=== PATIENT | female | born 1980 | race Caucasian/White ===

== ENCOUNTER 2020-11-01 15:28 | Outpatient (CLI) | payer BC, SELFPAY ==
--- NOTE | ~2020-11-01 | MM_ITS ---
EXAMINATION: MM screening [facility] BI w beatriz HISTORY: Screening mammogram TECHNIQUE: Craniocaudal and mediolateral oblique 3-D tomosynthesis images were obtained and synthetic 2-D images were generated. CAD analysis was submitted and interpreted. COMPARISON: 10/21/2019, 10/06/2018, 09/29/2018 BREAST PARENCHYMAL COMPOSITION: There are scattered areas of fibroglandular density. FINDINGS: There is no evidence of suspicious mass, calcification, or architectural distortion to sugg est malignancy in either breast. There has been no suspicious interval change. IMPRESSION: 1. No mammographic evidence of malignancy. 2. Recommend routine screening mammography in one year. BI-RADS Category 1: Negative Reviewed, dictated and finalized at location A. RAL RESOURCES INSTRUCTOR
== END 2020-11-01 15:29 | disposition home or self-care (01) ==
PROVIDERS: PCP Family Medicine; Visit Provider Obstetrics & Gynecology
DX: Z12.31 Encounter for screening mammogram for malignant neoplasm of breast (principal)
CPT/HCPCS: 77063; 77067

== ENCOUNTER 2021-11-14 14:29 | Outpatient (CLI) | payer BC, SELFPAY ==
--- NOTE | ~2021-11-14 | MM_ITS ---
EXAMINATION: MM screening [facility] BI w beatriz HISTORY: Screening TECHNIQUE: Craniocaudal and mediolateral oblique 3-D tomosynthesis images were obtained and synthetic 2-D images were generated. CAD analysis was submitted and interpreted. COMPARISON: Comparison to multiple prior studies sequentially, with oldest reviewed study dated 01/2018. BREAST PARENCHYMAL COMPOSITION: There are scattered areas of fibroglandular density. FINDINGS: There is no evidence of suspicious mass, calcification, or architectural distortion to sugg est malignancy in either breast. There has been no suspicious interval change. IMPRESSION: 1. No mammographic evidence of malignancy. 2. Recommend routine screening mammography in one year. BI-RADS Category 1: Negative Reviewed, dictated and finalized at location A. RTISING SPACE CLERK
== END 2021-11-14 14:30 | disposition home or self-care (01) ==
LOC: ANHIMG 14:30
PROVIDERS: PCP Family Medicine; Visit Provider Obstetrics & Gynecology
DX: Z12.31 Encounter for screening mammogram for malignant neoplasm of breast (principal)
CPT/HCPCS: 77063; 77067

== ENCOUNTER 2022-12-02 14:37 | Outpatient (CLI) | payer BC, SELFPAY ==
[2022-12-02 15:14] LABS: Hematocrit 39.1 % (37.0-47.0); Hemoglobin 12.8 g/dL (12.0-15.0)
== END 2022-12-02 14:38 | disposition home or self-care (01) ==
LOC: ANHSURGERY 14:40
PROVIDERS: PCP Family Medicine; Visit Provider Obstetrics & Gynecology
DX: Z01.812 Encounter for preprocedural laboratory examination (principal); T83.32XA Displacement of intrauterine contraceptive device, initial encounter
CPT/HCPCS: 36415; 85014; 85018

== ENCOUNTER 2022-12-06 00:49 | Day surgery (SDC) | payer BC, SELFPAY ==
[2022-11-27 12:21] VITALS: BMI 28.9
--- NOTE | 2022-11-27 12:24 | PC.NURSE ---
Report to the Outpatient Waiting Room, entrance under the green pavilion located off [facility], at time 10:00 on date 12/06/22. Planned Procedure Time: 12:00. Time changes happen often and if your time is changed the preop area will call you the afternoon before. - You and your visitor will be asked to self-screen and do not enter if you have any COVID symptoms. - Only one visitor is requested with a max of two and NO children visitors are allowed at this time. - The patient visitor may be requested to leave or wait in car when not with patient due to distancing restrictions. - A mask is optional within the hospital at this time. Patients may have clear liquids (water, carbonated beverages, clear teas, apple juice) until 3 hours prior to surgery (9:00) with a maximum of 20 ounces. - No food from midnight until time of surgery Take the following medications with a SIP of water the morning of surgery: N/A DO NOT STOP ANY OF YOUR OTHER PRESCRIPTION MEDICATIONS PRIOR TO SURGERY EXCEPT THE FOLLOWING Medications to discontinue per physician: ASPIRIN Date to take last dose: PER DR. MOHAMUD HIGGINS Please no make-up, nail french, hairspray, perfume, deodorant, or body powder the day of surgery. No jewelry (including any body piercings) or valuables the day of surgery, leave them at home. Please take a shower or bath the night before, or the morning of, surgery with an antibacterial soap. Wear comfortable, loose fitting clothing. - Jewelry must be removed prior to entering the operating room. Rings and piercings that are not removed may be cut off. - The hospital will not accept responsibility for valuables. - Please leave all valuables, including medications, at home the day of surgery. If you are going home after surgery, a licensed tank truck driver must drive you home. - NO public transportation without another adult if you receive anesthesia. - We recommend that an adult stay with you for 24 hours following discharge. - We also recommend that you do not drive, make important decision, drink alcoholic beverages, or take any drugs that were not prescribed by your health care provider for at least 24 hours after your discharge time. Follow any additional instructions given to you from your surgeon. If you or anyone in your household have experienced Covid symptoms in the past week, please notify your surgeon or the nurse liaison at the phone number below for possible testing. Telephone instructions given to PT - LARRY MESA and asked if any additional questions and then verbalized understanding. Patient advised to call surgeon office or pre surgery nurse liaison [phone] if any additional questions.
--- NOTE | 2022-12-04 11:36 | PM.IMHP ---
H&P: HPI History of Present Illness Date/Time: 12/04/22 11:36 Chief Complaint: Unable to find the strings of the IUD Narrative: Is a 42-year-old female who is admitted for removal hysteroscopically a previous IUD and replacement with Kyleena. Was unable to do this in the office and she opts for hysteroscopic approach. Risks and benefits reviewed in great detail [facility] Past Medical History Medical History (Updated 12/04/22 @ 11:38 by Mateus Sandra MD) Depression Hypertension Varicella Family History Family History Other Cerebrovascular accident Family history of malignant neoplasm of breast in first degree relative Family history of obesity Hypertension Social History Social History Smoking status: Never smoker Second hand tobacco smoke exposure: No Alcohol intake: current Drinks per week: 4 Substance use: never Substance use type: does not use Lack of Transportation: No Lack of Food: Never True Current Housing: I Have Housing Concerned About Future Housing: No Difficulty Paying Gas/Electric Bills: No Difficulty Paying for Meds: No Currently Unemployed: No Education: Associate Degree Difficulty w/ Childcare or Family Care: No Living arrangements: alone Spiritual care concerns: No Agree to blood products: Yes Meds Home Medications and Allergies Home Medications Medication Instructions Recorded Confirmed Type levonorgestrel 17.5 mcg/24 hrs 1 device intrauterine ONCE 03/12/22 11/27/22 History (5yrs) 19.5mg intrauterine device (Kyleena) amlodipine 10 mg tablet 10 mg PO DAILY #90 tabs 10/17/22 11/27/22 Rx escitalopram oxalate 10 mg tablet 10 mg PO DAILY #30 tabs 11/12/22 11/27/22 Rx aspirin 81 mg chewable tablet 81 mg PO HS 11/27/22 11/27/22 History Allergies Allergy/AdvReac Type Severity Reaction Status Date / Time No Known Allergies Allergy Verified 11/27/22 12:20 Exam Const: General: cooperative, healthy appearing, comfortable and well groomed Nutritional Appearance: average body habitus Orientation/consciousness: oriented to person, oriented to place and oriented to time HENMT: Head: normal to inspection Resp: Effort & Inspection: normal respiratory effort Cardio: Rate: regular rate Rhythm: regular rhythm Heart sounds: S1 normal heart sound present and S2 normal heart sound present GI: Inspection: normal to inspection Percussion: Yes normal to percussion Auscultation: normal bowel sounds : External Female Exam: normal external appearance Speculum Exam - Vagina: normal appearance of the vagina Speculum Exam - Cervix: normal appearance of the cervix Bimanual exam- vagina & uterus: non-tender Bimanual Exam- Adnexa, other: normal adnexae Assessment and Plan Assessment and plan (1) IUD strings lost: Code(s): T83.32XA - Displacement of intrauterine contraceptive device, initial encounter Status: Acute Plan Hysteroscopic removal of IUD with replacement of new IUD
--- NOTE | 2022-12-06 07:11 | WPDHPUPDATE1 ---
History and Physical Update Update Date/Time: 12/06/22 07:11 History and Physical has been reviewed, including an updated exam of the patient. There are NO changes in the patient's condition. Risks, benefits, and alternatives have been discussed and questions answered. Patient agrees to proceed with procedure.
[2022-12-06 09:00] VITALS: BP 113/72; PULSE 83; RESP 16; TEMP 36.3; O2SAT 100
[2022-12-06] MEDS: LACTATED RINGERS 1,000 ML 30 ML IV CONT (09:00)
[2022-12-06] MEDS: ACETAMINOPHEN 500 MG TABLET 1000 MG PO (09:07)
--- NOTE | 2022-12-06 09:40 | WPDANESEPPF ---
Anes - Initial Pre Proc Eval Procedure: Operation Date: 12/06/22 10:30 Proposed Procedures p Hysteroscopy with Intrauterine Device Removal and Reinsertion - Mateus Sandra MD Date/Time: 12/06/22 09:40 Surgeon: Mateus Sandra MD Pre Op Diagnosis: lost strings and reinsertion Patient Data Age: 42 Gender: F Height: 1.57 m Weight: 72.4 kg Last Vital Signs Temp 36.3 C L 12/06/22 09:00 Pulse 83 12/06/22 09:00 Resp 16 12/06/22 09:00 BP 113/72 12/06/22 09:00 Pulse Ox 100 12/06/22 09:00 O2 Del Method Room Air 12/06/22 09:00 Allergies Allergy/AdvReac Type Severity Reaction Status Date / Time No Known Allergies Allergy Verified 12/06/22 09:23 Home Medications Medication Instructions Recorded Confirmed Type levonorgestrel 17.5 mcg/24 hrs 1 device intrauterine ONCE 03/12/22 12/06/22 History (5yrs) 19.5mg intrauterine device (Kyleena) amlodipine 10 mg tablet 10 mg PO DAILY #90 tabs 10/17/22 12/06/22 Rx escitalopram oxalate 10 mg tablet 10 mg PO DAILY #30 tabs 11/12/22 12/06/22 Rx aspirin 81 mg chewable tablet 81 mg PO HS 11/27/22 12/06/22 History hydrocodone 5 mg-acetaminophen 325 1 tablet PO Q4H PRN pain #14 tabs 12/06/22 Rx mg tablet Patient hx anesthesia problems: none Family hx anesthesia problems: none Results Review: All pre-operative results and documents have been reviewed as part of the pre-operative evaluation. [facility] Past Medical History Medical History Depression Hypertension Varicella Family History Family History Other Cerebrovascular accident Family history of malignant neoplasm of breast in first degree relative Family history of obesity Hypertension Social History Social History Smoking status: Never smoker Second hand tobacco smoke exposure: No Alcohol intake: current Drinks per week: 4 Substance use: never Substance use type: does not use Lack of Transportation: No Lack of Food: Never True Current Housing: I Have Housing Concerned About Future Housing: No Difficulty Paying Gas/Electric Bills: No Difficulty Paying for Meds: No Currently Unemployed: No Education: Associate Degree Difficulty w/ Childcare or Family Care: No Living arrangements: alone Spiritual care concerns: No Agree to blood products: Yes Anes - Eval Final PreProcedure Day of Procedure 12/06/22 09:40 Patient weight: overweight Heart: regular rate and rhythm Lungs: clear to auscultation Airway: Mallampati scale class II Neurological: alert and oriented Last oral intake: >/= 8 hours ASA classification: II Emergent: no Anesthetic plan: proceed Anesthesia type and monitoring: general GIVS and standard monitoring Results Review: All pre-operative results and documents have been reviewed as part of the pre-operative evaluation. Informed Consent: The patient's anesthetic plan and its attendant risks and benefits were discussed with the patient/family/POA. Questions were solicited and answers provided to the satisfaction of the patient/family/POA.
[2022-12-06] MEDS: LIDOCAINE HCL 2% PF INJ 5 ML VIAL 10 ML INFILTRATE (10:41)
--- NOTE | 2022-12-06 10:46 | W.PM.PROC2 ---
Procedure Note - Detailed Date of Procedure 12/06/22 Pre-op Diagnosis lost strings and reinsertion Post-op Diagnosis Same Procedure Performed Hysteroscopy/removal of IUD /replacement of IUD Surgeon Mateus Sandra MD Anesthesia MAC and Local Indications this is a 42-year-old female who is IUD was unable to be reached in the office Findings uterus sounded to7.5cm. The IUD was found with the strings in the uterus. Description of Procedure Patient was prepped draped in normal sterile fashion placed in dorsal lithotomy position. Under excellent IV sedation weighted speculum placed in posterior fornix vagina. Anterior lip of the cervix grasped single-tooth tenaculum. 2.5cc 1% xylocaine anesthesia placed at 2, 4, 8, 10:00 a.m. of the cervix. Uterus sounded to7.5cm. The serial dilatation was performed followed by passage of the of Mariely hysteroscope. The IUD was seen and was grasped and removed without difficulty. Photo documentation undertaken. The hysteroscope was removed and the Kyleena was placed sterilely in the uterus at7.5cm string cut to an inch. The procedure was finished routine discharge instructions were given there were no complications Estimated Blood Loss 5 Drains No Packing No Pathology None sent Complications No immediate complications Condition Stable Disposition PACU
[2022-12-06 10:50] VITALS: BP 113/73; PULSE 66; RESP 14
[2022-12-06 11:34] VITALS: BP 114/72; PULSE 67; RESP 16
[2022-12-06 11:52] VITALS: BP 121/78; PULSE 58; RESP 16
== END 2022-12-06 12:10 | disposition home or self-care (01) ==
PROVIDERS: PCP Family Medicine; Visit Provider Obstetrics & Gynecology
PROC: 0U5B8ZZ Destruction of Endometrium, Via Natural or Artificial Opening Endoscopic (ICD-10-PCS; CPT 58563; principal; 2022-12-06 10:30)
DX: T83.32XA Displacement of intrauterine contraceptive device, initial encounter (principal); Y84.8 Other medical procedures as the cause of abnormal reaction of the patient, or of later complication, without mention of misadventure at the time of the procedure; I10 Essential (primary) hypertension; F32.A Depression, unspecified; Z79.82 Long term (current) use of aspirin
CPT/HCPCS: 58562; 58300; 36415; 85014; 85018; A9270; J2250; J2704; J3010; J7120

== ENCOUNTER 2022-12-16 15:28 | Outpatient (CLI) | payer BC, SELFPAY ==
--- NOTE | ~2022-12-16 | MM_ITS ---
EXAMINATION: MM screening [facility] BI w beatriz HISTORY: Screening mammogram TECHNIQUE: Craniocaudal and mediolateral oblique 3-D tomosynthesis images were obtained and synthetic 2-D images were generated. CAD analysis was submitted and interpreted. COMPARISON: 11/14/2021, 11/01/2020, 10/21/2019 bilateral screening mammogram examinations BREAST PARENCHYMAL COMPOSITION: There are scattered areas of fibroglandular density. FINDINGS: There is no evidence of suspicious mass, calcification, or architectural distortion to sugg est malignancy in either breast. There has been no suspicious interval change. IMPRESSION: 1. No mammographic evidence of malignancy. 2. Recommend routine screening mammography in one year. BI-RADS Category 1: Negative Reviewed, dictated and finalized at location A. SLIP COVER INSTALLER
== END 2022-12-16 15:29 | disposition home or self-care (01) ==
LOC: ANHIMG 15:29
PROVIDERS: PCP Family Medicine; Visit Provider Obstetrics & Gynecology
DX: Z12.31 Encounter for screening mammogram for malignant neoplasm of breast (principal)
CPT/HCPCS: 77063; 77067

== ENCOUNTER 2024-02-25 08:26 | Outpatient (CLI) | payer BC, SELFPAY ==
--- NOTE | ~2024-02-25 | MM_ITS ---
EXAMINATION: MM screening [facility] BI w beatriz HISTORY: Screening TECHNIQUE: Craniocaudal and mediolateral oblique 3-D tomosynthesis images were obtained and synthetic 2-D images were generated. CAD analysis was submitted and interpreted. COMPARISON: Comparison to multiple prior studies sequentially, with oldest reviewed study dated 01/2018. BREAST PARENCHYMAL COMPOSITION: Dense: The breasts are heterogeneously dense, which may obscure small masses FINDINGS: There is a new focal asymmetry superiorly in the right breast on MLO view. There is a new m ass in the central lateral aspect of the left breast anteriorly. There are no suspicious calcificatio ns or architectural distortion. IMPRESSION: 1. New focal left breast mass and right breast asymmetry. 2. Additional mammographic views and possible breast ultrasound are recommended. BI-RADS Category 0: Incomplete: Needs additional imaging evaluation. Reviewed, dictated and finalized at location B. IMPRESSION: 1. New focal left breast mass and right breast asymmetry. 2. Additional mammographic views and possible breast ultrasound are recommended . BI-RADS Category 0: Incomplete: Needs additional imaging evaluation.
== END 2024-02-25 08:27 | disposition home or self-care (01) ==
LOC: ANHIMG 08:30
PROVIDERS: PCP Family Medicine; Visit Provider Obstetrics & Gynecology
DX: Z12.31 Encounter for screening mammogram for malignant neoplasm of breast (principal); R92.8 Other abnormal and inconclusive findings on diagnostic imaging of breast
CPT/HCPCS: 77063; 77067

== ENCOUNTER 2024-03-23 11:15 | Outpatient (CLI) | payer BC, SELFPAY ==
--- NOTE | ~2024-03-23 | MMUS_ITS ---
EXAMINATION: MM diagnostic [facility] BI w beatriz, US breast BI complete HISTORY: Follow-up bilateral breast asymmetries TECHNIQUE: Additional 3-D tomosynthesis images of the breasts were performed and synthetic 2-D images were generated. CAD analysis was submitted and interpreted. High resolution bilateral complete breas t ultrasound was performed. COMPARISON: 02/25/2024 BREAST PARENCHYMAL COMPOSITION: Dense: The breasts are heterogeneously dense, which may obscure small masses FINDINGS: MAMMOGRAPHIC FINDINGS: There is a focal asymmetry slightly superior aspect of the right breast on mediolateral view, near th e nipple. This is not definitely visualized on the CC view. There is a persistent small radiolucent m ass in the upper central aspect of the left breast anteriorly. ULTRASOUND: Complete bilateral US of all 4 quadrants of the breasts and retroareolar region was reviewed. Right breast: At 10:00 near the nipple there is a lobulated slightly irregular hypoechoic mass with p arallel orientation, mixed posterior attenuation measuring 13 x 10 x 6 mm. No internal vascularity. Left breast: At 7:00, 5 cm from the nipple there is a 5 mm cyst. At 11:00, 5 cm from the nipple, ther e is an oval hypoechoic mass with slightly heterogeneous internal echotexture measuring 7 x 6 x 3 mm, parallel orientation, circumscribed margins, no posterior features and no internal vascularity, like ly benign. IMPRESSION: 1. Slightly irregular shaped 13 mm right breast mass at 10:00 near the nipple. Ultrasound-guided righ t breast biopsy recommended. 2. Probable benign hypoechoic mass of the left breast at 11:00, 5 cm from the nipple. Six-month follo w-up Limited left breast ultrasound recommended. BI-RADS CATEGORY 4-SUSPICIOUS ABNORMALITY Reviewed, dictated and finalized at location B. IMPRESSION: 1. Slightly irregular shaped 13 mm right breast mass at 10:00 near the nipple. Ultrasound-guided right breast biopsy recommended. 2. Probable benign hypoechoic mass of the left breast at 11:00, 5 cm from the n ipple. Six-month follow-up Limited left breast ultrasound recommended. BI-RADS CATEGORY 4-SUSPICIOUS ABNORMALITY
== END 2024-03-23 11:16 | disposition home or self-care (01) ==
PROVIDERS: PCP Family Medicine; Visit Provider Obstetrics & Gynecology
DX: R92.8 Other abnormal and inconclusive findings on diagnostic imaging of breast (principal)
CPT/HCPCS: 76641; 77062; 77066; G0279

== ENCOUNTER 2024-05-20 08:10 | Outpatient (CLI) | payer BC, SELFPAY ==
--- NOTE | ~2024-05-20 | MMUS_ITS ---
MM post biopsy diagnostic LT, US breast biopsy RT w image EXAMINATION: US GUIDED NEEDLE BIOPSY WITH VACUUM ASSISTANCE DATE: 05/20/2024 10:09 CDT INDICATION: Right breast mass seen on prior examination. Ultrasound-guided core biopsy is requested to evaluate for malignancy. BREAST PARENCHYMAL COMPOSITION: Dense: The breasts are heterogeneously dense, which may obscure small masses TECHNIQUE AND FINDINGS: The risks and potential benefits of the procedure were discussed with the patient, and written inform ed consent was obtained. After sterile preparation of the right breast, 1% lidocaine was utilized fo r local anesthesia. 1% lidocaine with epinephrine was used for deep anesthesia. A 10G vacuum-assisted biopsy gun needle was advanced through to the outer edge of the region of inter est from a superior approach utilizing sonographic guidance. A total of 4 tissue core samples were o btained through the lesion. An Inrad tissue marker clip was then placed at the biopsy site. Hemostas is was achieved. The patient tolerated procedure well and there was no evidence of immediate complication. The patien t was given verbal instructions partly is from the department. Right breast mammograms to document t issue marker clip placement. The tissue samples were submitted to surgical pathology for histologic a nalysis. IMPRESSION: 1. Successful ultrasound-guided vacuum-assisted biopsy of right breast mass with post procedure mamm ogram for marker placement. Please refer to pathology report for histologic analysis. Reviewed, dictated and finalized at location B. IMPRESSION: 1. Successful ultrasound-guided vacuum-assisted biopsy of right breast mass wi th post procedure mammogram for marker placement. Please refer to pathology rep ort for histologic analysis.
== END 2024-05-20 08:11 | disposition home or self-care (01) ==
PROVIDERS: PCP Family Medicine; Visit Provider Surgery
DX: N63.10 Unspecified lump in the right breast, unspecified quadrant (principal); R92.8 Other abnormal and inconclusive findings on diagnostic imaging of breast
CPT/HCPCS: 19083; 77065; 88305; A4648

== ENCOUNTER 2024-09-14 09:57 | Outpatient (CLI) | payer BC, SELFPAY ==
--- NOTE | ~2024-09-14 | MR_ITS ---
EXAMINATION: MR breast BI wo/w con INDICATION: Left breast lump, family history of breast cancer TECHNIQUE: Axial VIBRANT pre and dynamic post contrast, Sagittal VIBRANT post contrast, Axial T2 STIR ASSET COMPARISON: Mammography dated 02/25/2024 CONTRAST: Multihance, 15 cc BREAST COMPOSITION: Heterogeneous fibroglandular tissue FINDINGS: RIGHT BREAST: There is mild to moderate background parenchymal enhancement. There is asymmetric nonma ss-like enhancement in the outer right subareolar region.. No pathologically enlarged axillary or int ernal mammary lymph nodes are identified. LEFT BREAST: There is mild to moderate background parenchymal enhancement. There is an 8 mm ovoid/rou nd enhancing mass in the central slightly upper left breast, anterior third, 3.3 cm posterior to nipp le. This probably correlates with the sonographic lesion identified in the left breast. No pathologic ally enlarged axillary or internal mammary lymph nodes are identified. IMPRESSION: 8 mm left breast mass, as detailed above, which correlates with the sonographic lesion seen on ultra sound earlier today. This lesion has benign imaging characteristics sonographically, and is stable si nce 03/23/2024, is compatible with benign finding. Some asymmetric mild enhancement in the right outer subareolar region, most likely asymmetric fibrogl andular tissue. Consider second look ultrasound in the right subareolar region to further exclude any suspicious lesion. 6 month follow-up MRI advised to reassess this finding. BI-RADS category 3, probably benign findings. Reviewed, dictated and finalized at location . PROCESS DEPLOYMENT CONSULTANT IMPRESSION: 8 mm left breast mass, as detailed above, which correlates with the sonographi c lesion seen on ultrasound earlier today. This lesion has benign imaging seble cteristics sonographically, and is stable since 03/23/2024, is compatible with b enign finding. Some asymmetric mild enhancement in the right outer subareolar region, most lik nenita asymmetric fibroglandular tissue. Consider second look ultrasound in the ri ght subareolar region to further exclude any suspicious lesion. 6 month follow- up MRI advised to reassess this finding. BI-RADS category 3, probably benign findings.
--- NOTE | ~2024-09-14 | US_ITS ---
EXAMINATION TYPE: US breast LT limited COMPARISON: 03/23/2024 REASON FOR STUDY: Z12.39 - Encounter for other screening for malignant neop... TECHNIQUE: Targeted sonographic evaluation of the left breast was performed. INTERPRETATION: Stable 7 x 3 x 5 mm ovoid parallel circumscribed mass without posterior shadowing is noted of the lef t breast 12:00 position, 5 cm from the nipple. IMPRESSION: Stable subcentimeter benign-appearing mass at the 12 position left breast, as detailed above. BI-RADS CATEGORY: BI-RADS 2: Benign Reviewed, dictated and finalized at location M. ATTENDANT IMPRESSION: Stable subcentimeter benign-appearing mass at the 12 position left breast, as d etailed above. BI-RADS CATEGORY: BI-RADS 2: Benign
== END 2024-09-14 09:58 | disposition home or self-care (01) ==
LOC: ANHIMG 09:57
PROVIDERS: PCP Family Medicine; Visit Provider Surgery
DX: R92.8 Other abnormal and inconclusive findings on diagnostic imaging of breast (principal); N63.25 Unspecified lump in the left breast, overlapping quadrants; N63.10 Unspecified lump in the right breast, unspecified quadrant; Z80.3 Family history of malignant neoplasm of breast
CPT/HCPCS: 76642; 77049; A9577; C8908

== ENCOUNTER 2025-03-14 11:07 | Outpatient (CLI) | payer BC, SELFPAY ==
--- NOTE | ~2025-03-14 | MR_ITS ---
MR breast BI wo/w con 03/15/2025 07:59 CDT INDICATION: Follow-up breast mass. Palpable lumps in both breasts. TECHNIQUE: MRI of the breasts perform using standard protocol pre-and post IV contrast with the follo wing sequences: Axial T2 STIR, axial T1, axial vibrant T1 with fat suppression precontrast and multip hasic postcontrast. 15 cc MultiHance administered intravenously. COMPARISON: Comparison to multiple prior studies sequentially, with oldest reviewed study dated 09/26. FINDINGS: There is heterogeneous fibroglandular tissue in both breasts. Right breast: There are no abnormalities on the precontrast sequences. There is mild background paren chymal enhancement. There is a small intramammary lymph node in the upper outer quadrant of the right breast at 11:00, middle third measuring 6 mm. In the upper outer quadrant of the right breast, middle third there is enhancing 5 mm mass with rapid plateau enhancement and not definitely seen on prior examination. No evidence of signal abnormalitie s in the axillary or internal mammary node distributions. LEFT BREAST: No signal abnormalities on precontrast sequences. There is mild background parenchymal enhancement. Stable enhancing mass upper central left breast, anterior-middle depth measuring 8 mm lo cated 4.9 cm posterior to the nipple with rapid persistent enhancement. No evidence of signal abnorma lities in the axillary or internal mammary node distributions.] IMPRESSION: 1: Right breast: Right breast mass upper outer quadrant of the right breast measuring 5 mm with rapi d plateau enhancement, not definitely seen on prior examination, although likely benign. Probable vasiliy ign intramammary lymph node of the right breast measuring 6 mm in the upper outer quadrant, middle th ird. 2: Left breast: Stable likely benign left breast mass measuring 8 mm upper central left breast, ante rior-middle depth 4.9 cm posterior to the nipple.. Recommend correlation with diagnostic bilateral mammogram and bilateral breast ultrasound. BI-RADS CATEGORY 0 - INCOMPLETE STUDY, NEED ADDITIONAL IMAGING EVALUATION. Reviewed, dictated and finalized at location B. IMPRESSION: 1: Right breast: Right breast mass upper outer quadrant of the right breast me asuring 5 mm with rapid plateau enhancement, not definitely seen on prior exami nation, although likely benign. Probable benign intramammary lymph node of the right breast measuring 6 mm in the upper outer quadrant, middle third. 2: Left breast: Stable likely benign left breast mass measuring 8 mm upper nenita tral left breast, anterior-middle depth 4.9 cm posterior to the nipple.. Recommend correlation with diagnostic bilateral mammogram and bilateral breast ultrasound. BI-RADS CATEGORY 0 - INCOMPLETE STUDY, NEED ADDITIONAL IMAGING EVALUATION.
--- OUTSIDE RECORDS SUMMARY | 2025-03-14 11:45 | XMS_ITS | Clinical Summary ---
Author Organization [facility] [employer] Address [address] [place] [address] Care Team Providers Care Credit Officer Name Role Phone Diane Hernandez MD Primary Care Provider [phone] Source Comments [facility] [employer]non-university hospital Affiliates and Associated Physician Practices is amultiple site organization consisting of ambulatory clinics and hospital sitesin [place], [place], [place] and [place]. This disclosure is being madepursuant to the Care Everywhere program and may not contain all information available regarding this patient. Last updated 18.[facility] [employer] Allergies No known active allergies Medications * Be aware that medications may not be up to date on this document. Alwaysverify current medications with the patient. METOPROLOL SUCCINATE PO Active amLODIPine Besylate (NORVASC PO) Active levonorgestrel (KYLEENA) 19.5 MG IUD IUD 1 Intra Uterine Device by Intrauterine route as directed Active albuterol HFA (PROVENTIL;VENT TISH;PROAIR) 108 (90 Base) MCG/ACT inhaler Inhale 2 puffs by mouth every 4 hours as needed 1 Inhaler 0 Active benzonatate (TESSALON) 200 MG capsule Take 1 capsule by mouth 3 times daily as needed for Cough 30 capsule 0 Active Social History Tobacco Use Types Packs/Day Years Used Date Smoking Tobacco: Never Smokeless Tobacco: Never Comments Unknown Sex and Gender Information Value Date Recorded Sex Assigned at Not on file Legal Sex Female 12:57 PM CDT Gender Identity Not on file Sexual Orientation Not on file Last Filed Vital Signs Vital Sign Reading Time Taken Comments Blood Pressure 102/70 12/08/2019 9:48 AM WEB EDITOR Pulse 83 12/08/2019 9:48 AM WEB EDITOR Temperature 36.8 C (98.2 F) 12/08/2019 9:48 AM WEB EDITOR Respiratory Rate 17 12/08/2019 9:48 AM WEB EDITOR Oxygen Saturation 99% 12/08/2019 9:48 AM WEB EDITOR Inhaled Oxygen Concentration - - Weight 81.6 kg (180 lb) 12/08/2019 9:48 AM WEB EDITOR Height 157.5 cm (5' 2 ) 12/08/2019 9:48 AM WEB EDITOR Body Mass Index 32.92 12/08/2019 9:48 AM WEB EDITOR Plan of Treatment Health Maintenance Due Date Last Done Comments COLOGUARD (AGES 45-75) - COL ON CA SCREENING 1978 COLON MONITORING 1978 COLONOSCOPY - COLON CA SCREENING 1978 CT COLONOGRAPHY - COLON CA SCREENING 1978 Colorectal Cancer Screening 1978 FIT - COLON CA SCREENING 1978 FLEX SIG - COLON CA SCREENING 1978 LIPID TESTING 1978 MAMMOGRAM 1978 PAP SMEAR 1978 HIV SCREENING 1993 HEPATITIS C SCREENING 09/10/1996 DTAP/TDAP/TD VACCINES (1 - Tdap) 1997 HEPATITIS B VACCINE (1 of 3 - 19+ 3-dose series) 1997 SCREENING FOR DIABETES 04/25/2019 COVID-19 VACCINE (1 - 2023-2 5 season) 2024 DEPRESSION SCREENING 10/27/2024 INFLUENZA VACCINE (Season Ended) 2025 ZOSTER VACCINE (1 of 2) 2028 HIB VACCINE Aged Out No longer eligi ble based on patient's age to complete this topic HPV VACCINE Aged Out No longer eligi ble based on patient's age to complete this topic MENINGOCOCCAL (Group B) VACC INE SHARED DECISION-MAKING Aged Out No longer eligibl e based on patient's age to complete this topic MENINGOCOCCAL GROUPS A/C/Y/W VACCINE Aged Out No longer eligible b ased on patient's age to complete this topic PNEUMOCOCCAL VACCINE Aged Out No long er eligible based on patient's age to complete this topic Insurance * Guarantor: JOHANNA SMALLWOOD Account Type Relation to Patient Date of Phone Billing Address Personal/Family [address] [place] [address] SELF PAY NO INSURANCE Member Subscriber Plan / Payer (Ef fective for All Dates) Name:Johanna Smallwood Member ID:Not on file Relation to Subscriber:Not on file Name:JOHANNA SMALLWOOD Subscriber ID:Not on file Address: [address] [place] [address] Payer ID:Not on file Group ID:Not on file Type:Self Pay Address: [place], [place] * Guarantor: JOHANNA SMALLWOOD Account Type Relation to Patient Date of Phone Billing Address Personal/Family [address] [place] [address] SELF PAY NO INSURANCE Member Subscriber Plan / Payer (Ef fective for All Dates) Name:Johanna Smallwood Member ID:Not on file Relation to Subscriber:Not on file Name:JOHANNA SMALLWOOD Subscriber ID:Not on file Address: [address] [place], [place] [id number] Payer ID:Not on file Group ID:Not on file Type:Self Pay Address: [place], [place] * Guarantor: JOHANNA SMALLWOOD Account Type Relation to Patient Date of Phone Billing Address Personal/Family [address] SELF PAY NO INSURANCE Member Subscriber Plan / Payer (Ef fective for All Dates) Name:Johanna Smallwood Member ID:Not on file Relation to Subscriber:Not on file Name:JOHANNA SMALLWOOD Subscriber ID:Not on file Address: [address] [place], [place] [id number] Payer ID:Not on file Group ID:Not on file Type:Self Pay Address: [place], [place] Care Teams Credit Officer Relationship Specialty Start Date End Date Diane Hernandez MD [address] [place] [address] PCP - General Family Medicine 04/25/19
--- OUTSIDE RECORDS SUMMARY | 2025-03-14 11:45 | XMS_ITS | Clinical Summary ---
Author Organization [facility] Address [address] [place] [address] Care Team Providers Care Coding Analyst Name Role Phone Unavailable Primary Care Provider Unavailabl e Social History Tobacco Use Types Packs/Day Years Used Date Smoking Tobacco: Never Assessed Comments Unknown Sex and Gender Information Value Date Recorded Sex Assigned at Not on file Legal Sex Female 6:02 PM CDT Gender Identity Not on file Sexual Orientation Not on file Plan of Treatment Health Maintenance Due Date Last Done Comments Cervical Cancer Screening Pa p Smear (Age 30 to 64) Every 3 Years 1978 Colorectal Cancer Screening Colonoscopy (10 Years) 1978 Annual Physical 1981 Hepatitis C 1996 DTaP, Tdap and Td Vaccines ( 1 - Tdap) 1997 Hepatitis B Vaccines (1 of 3 - 19+ 3-dose series) 1997 Cervical Cancer Screening Pa p with HPV Testing (Age 30 to 64) Every 5 Years 2008 Cervical Cancer Screening with HPV 2008 Mammogram Screening 2018 COVID-19 Vaccine (2023-2 5 season) 2024 Meningococcal B Vaccine Aged Out No l onger eligible based on patient's age to complete this topic Meningococcal Vaccine Aged Out No kenneth kenya eligible based on patient's age to complete this topic Pneumococcal Vaccine: Pediat rics (0 to 5 Years) and At-Risk Patients (6 to 49 Years) Aged Out No longer eligible b ased on patient's age to complete this topic RSV Immunizations Under 20 Months Aged Out No longer eligible based on patient's age to complete this topic
== END 2025-03-14 11:08 | disposition home or self-care (01) ==
PROVIDERS: PCP Family Medicine; Visit Provider Physician Assistant Surgical
DX: R92.8 Other abnormal and inconclusive findings on diagnostic imaging of breast (principal); N63.22 Unspecified lump in the left breast, upper inner quadrant; N63.11 Unspecified lump in the right breast, upper outer quadrant; Z91.89 Other specified personal risk factors, not elsewhere classified; Z12.31 Encounter for screening mammogram for malignant neoplasm of breast
CPT/HCPCS: 77049; A9579; C8908

== ENCOUNTER 2025-04-05 13:11 | Outpatient (CLI) | payer BC, SELFPAY ==
--- NOTE | ~2025-04-05 | MMUS_ITS ---
EXAMINATION: MM diagnostic dominique BI w beatriz, US breast RT limited HISTORY: Palpable right breast lump TECHNIQUE: Additional 3-D tomosynthesis images of the right breast were performed and synthetic 2-D i mages were generated. CAD analysis was submitted and interpreted. High resolution Limited right breas t ultrasound was performed. COMPARISON: Comparison to multiple prior studies sequentially, with oldest reviewed study dated 03/2021. BREAST PARENCHYMAL COMPOSITION: Dense: The breasts are heterogeneously dense, which may obscure small masses FINDINGS: MAMMOGRAPHIC FINDINGS: The breasts are stable. No new masses, calcifications or architectural distortion in either breast to suggest malignancy. ULTRASOUND: Limited right breast ultrasound: At 10:00, 5 cm from the nipple there is an oval circumscribed parall el oriented hypoechoic mass with parallel orientation, no posterior features and no internal vascular ity measuring 7 mm. At 10:00 near the nipple in the area of previous biopsy there is an oval hypoecho ic mass measuring 9 x 8 x 6 mm with adjacent tissue marker, consistent with previous benign biopsy si te. No additional masses are seen. IMPRESSION: 1. Probable benign right breast mass at 10:00, 5 cm from the nipple. Biopsy proven mass at 10:00 near the nipple. No mammographic abnormalities to suggest malignancy. 2. Recommend 6 month follow-up Limited right breast ultrasound BI-RADS category 3, probably benign findings. Reviewed, dictated and finalized at location B. IMPRESSION: 1. Probable benign right breast mass at 10:00, 5 cm from the nipple. Biopsy pro arjun mass at 10:00 near the nipple. No mammographic abnormalities to suggest mal ignancy. 2. Recommend 6 month follow-up Limited right breast ultrasound BI-RADS category 3, probably benign findings.
--- OUTSIDE RECORDS SUMMARY | 2025-04-05 14:12 | XMS_ITS | Clinical Summary ---
Author Organization [facility] Address [address] [place] [address] Care Team Providers Care Manager Membership Name Role Phone Diane Hernandez MD Primary Care Provider [phone] Source Comments [facility],non-[facility] Affiliates and Associated Physician Practices is amultiple site organization consisting of ambulatory clinics and hospital sitesin [place], [place], [place] and [place]. This disclosure is being madepursuant to the Care Everywhere program and may not contain all information available regarding this patient. Last updated 18.[facility] Allergies No known active allergies Medications * [...] Comments Blood Pressure 102/70 12/08/2019 9:48 AM CONTRACTS MANAGER Pulse 83 12/08/2019 9:48 AM CONTRACTS MANAGER Temperature 36.8 C (98.2 F) 12/08/2019 9:48 AM CONTRACTS MANAGER Respiratory Rate 17 12/08/2019 9:48 AM CONTRACTS MANAGER Oxygen Saturation 99% 12/08/2019 9:48 AM CONTRACTS MANAGER Inhaled Oxygen Concentration - - Weight 81.6 kg (180 lb) 12/08/2019 9:48 AM CONTRACTS MANAGER Height 157.5 cm (5' 2) 12/08/2019 9:48 AM CONTRACTS MANAGER Body Mass Index 32.92 12/08/2019 9:48 AM CONTRACTS MANAGER Plan of Treatment Health Maintenance Due Date [...] Date of Phone Billing Address Personal/Family [address] [place] [address] SELF PAY NO INSURANCE Member Subscriber Plan / Payer (Ef fective for All Dates) Name:Johanna Smallwood Member ID:Not on file Relation to Subscriber:Not on file Name:JOHANNA SMALLWOOD Subscriber ID:Not on file Address: [address] [place] [address] Payer ID:Not on file Group ID:Not on file Type:Self Pay Address: [place], [place] * Guarantor: JOHANNA SMALLWOOD Account Type Relation to Patient Date of Phone Billing Address Personal/Family [address] [place] [address] SELF PAY NO INSURANCE Member Subscriber Plan / Payer (Ef fective for All Dates) Name:Johanna Smallwood Member ID:Not on file Relation to Subscriber:Not on file Name:JOHANNA SMALLWOOD Subscriber ID:Not on file Address: [address] [place], [place] [id number] Payer ID:Not on file Group ID:Not on file Type:Self Pay Address: [place], [place] * Guarantor: JOHANNA SMALLWOOD Account Type Relation to Patient Date of Phone Billing Address Personal/Family [address] SELF PAY NO INSURANCE Member Subscriber Plan / Payer (Ef fective for All Dates) Name:Johanna Smallwood Member ID:Not on file Relation to Subscriber:Not on file Name:JOHANNA SMALLWOOD Subscriber ID:Not on file Address: [address] [place], [place] [id number] Payer ID:Not on file Group ID:Not on file Type:Self Pay Address: [place], [place] Care Teams Manager Membership Relationship Specialty Start Date End Date Diane Hernandez MD [address] [place] [address] PCP - General Family Medicine 04/25/19
== END 2025-04-05 13:12 | disposition home or self-care (01) ==
PROVIDERS: PCP Family Medicine; Visit Provider Surgery
DX: N63.11 Unspecified lump in the right breast, upper outer quadrant (principal); Z91.89 Other specified personal risk factors, not elsewhere classified
CPT/HCPCS: 76642; 77062; 77066; G0279

== ENCOUNTER 2025-06-22 01:36 | Day surgery (SDC) | payer BC, SELFPAY ==
[2025-06-20 14:03] VITALS: BMI 29.0
--- OUTSIDE RECORDS SUMMARY | 2025-06-22 01:39 | XMS_ITS | Clinical Summary ---
Author Organization [facility] Address [address] [place] [address] Care Team Providers Care Grid Inspector Name Role Phone Diane Hernandez MD Primary Care Provider [phone] Source Comments [facility],non-[facility] Affiliates and Associated Physician Practices is amultiple site organization consisting of ambulatory clinics and hospital sitesin [place], [place], [place] and [place]. This disclosure is being madepursuant to the Care Everywhere program and may not contain all information available regarding this patient. Last updated 07/17/18.[employer] Allergies No known active allergies Medications * [...] Comments Blood Pressure 102/70 12/08/2019 9:48 AM BITUMASTIC APPLIER Pulse 83 12/08/2019 9:48 AM BITUMASTIC APPLIER Temperature 36.8 C (98.2 F) 12/08/2019 9:48 AM BITUMASTIC APPLIER Respiratory Rate 17 12/08/2019 9:48 AM BITUMASTIC APPLIER Oxygen Saturation 99% 12/08/2019 9:48 AM BITUMASTIC APPLIER Inhaled Oxygen Concentration - - Weight 81.6 kg (180 lb) 12/08/2019 9:48 AM BITUMASTIC APPLIER Height 157.5 cm (5' 2) 12/08/2019 9:48 AM BITUMASTIC APPLIER Body Mass Index 32.92 12/08/2019 9:48 AM BITUMASTIC APPLIER Plan of Treatment Health Maintenance Due Date Last Done Comments COLOGUARD (AGES 45-75) - COL ON CA SCREENING 1978 COLON MONITORING 1978 COLONOSCOPY - COLON CA SCREENING 1978 CT COLONOGRAPHY - COLON CA SCREENING 1978 Colorectal Cancer Screening 1978 FIT - COLON CA SCREENING 1978 FLEX SIG - COLON CA SCREENING 1978 LIPID TESTING 1978 MAMMOGRAM 1978 HIV SCREENING 1993 HEPATITIS C SCREENING 09/10/1996 DTAP/TDAP/TD VACCINES (1 - Tdap) 1997 HEPATITIS B VACCINE (1 of 3 - 19+ 3-dose series) 1997 PAP SMEAR 1999 SCREENING FOR DIABETES 04/25/2019 COVID-19 VACCINE (1 - 2023-2 5 season) 2024 DEPRESSION SCREENING 10/27/2024 INFLUENZA VACCINE (#1) 2025 ZOSTER VACCINE (1 of 2) 2028 [...] Date of Phone Billing Address Personal/Family [address] [place] [address] SELF PAY NO INSURANCE Member Subscriber Plan / Payer (Ef fective for All Dates) Name:Johanna Smallwood Member ID:Not on file Relation to Subscriber:Not on file Name:JOHANNA SMALLWODO Subscriber ID:Not on file Address: [address] [place] [address] Payer ID:Not on file Group ID:Not on file Type:Self Pay Address: [place], [place] * Guarantor: JOHANNA SMALLWOOD Account Type Relation to Patient Date of Phone Billing Address Personal/Family [address] [place] [address] SELF PAY NO INSURANCE Member Subscriber Plan / Payer (Ef fective for All Dates) Name:Johanna Smallwood Member ID:Not on file Relation to Subscriber:Not on file Name:JOHANNA SMALLWOOD Subscriber ID:Not on file Address: [address] [place], [place] [id number] Payer ID:Not on file Group ID:Not on file Type:Self Pay Address: [place], [place] * Guarantor: JOHANNA SMALLWOOD Account Type Relation to Patient Date of Phone Billing Address Personal/Family [address] SELF PAY NO INSURANCE Member Subscriber Plan / Payer (Ef fective for All Dates) Name:Johanna Smallwood Member ID:Not on file Relation to Subscriber:Not on file Name:JOHANNA SMALLWOOD Subscriber ID:Not on file Address: [address] [place], [place] [phone] Payer ID:Not on file Group ID:Not on file Type:Self Pay Address: [place], [place] Care Teams Grid Inspector Relationship Specialty Start Date End Date Diane Hernandez MD [address] [place] [address] PCP - General Family Medicine 04/25/19
[2025-06-22 09:16] VITALS: BP 115/93; PULSE 80; TEMP 36.4; O2SAT 100; BMI 27.3
[2025-06-22] MEDS: LACTATED RINGERS 1,000 ML 150 ML IV CONT (09:30)
--- NOTE | 2025-06-22 10:01 | WPDANESEPPF ---
Anes - Initial Pre Proc Eval Procedure: Operation Date: 06/22/25 10:30 Proposed Procedures p Diagnostic Colonoscopy - Eliud Kang MD Date/Time: 06/22/25 10:01 Surgeon: Eliud Kang MD Pre Op Diagnosis: Hemorrhage of anus and rectum Patient Data Age: 44 Gender: F Height: 1.6 m Weight: 70.2 kg Last Vital Signs Temp 97.6 F 06/22/25 09:16 Pulse 80 06/22/25 09:16 BP 115/93 H 06/22/25 09:16 Pulse Ox 100 06/22/25 09:16 O2 Del Method Room Air 06/22/25 09:16 Allergies Allergy/AdvReac Type Severity Reaction Status Date / Time No Known Allergies Allergy Verified 06/22/25 09:15 Home Medications ?Medication ?Instructions ?Recorded ?Confirmed ?Type aspirin 81 mg chewable tablet 81 mg PO HS 11/27/22 06/22/25 History amlodipine 10 mg tablet 10 mg PO DAILY #90 tabs 10/18/24 06/22/25 Rx escitalopram oxalate 20 mg tablet 20 mg PO DAILY #90 tabs 05/12/25 06/22/25 Rx levonorgestrel 17.5 mcg/24 hr (up 1 device intrauterine ONCE #1 ea 05/12/25 06/20/25 Rx to 5 yrs) 19.5mg intrauterine device (Kyleena) Laboratory Tests 06/22/25 09:32 Beta HCG, Quant Pending Patient hx anesthesia problems: none Family hx anesthesia problems: none Results Review: All pre-operative results and documents have been reviewed as part of the pre-operative evaluation. [facility] Past Medical History Medical History IUD strings lost Varicella Depression Hypertension Family History Family History Father Hypertension Sibling Hypertension Other Cerebrovascular accident Family history of malignant neoplasm of breast in first degree relative Family history of obesity Social History Social History Smoking status: Never smoker Second hand tobacco smoke exposure: No Alcohol intake: current Drinks per week: 4 Substance use: never Substance use type: does not use Do You Feel Safe in your Home?: Yes Lack of Transportation: No Lack of Food: Never True Current Housing: I Have Housing Concerned About Future Housing: No Difficulty Paying Gas/Electric Bills: No Difficulty Paying for Meds: No Currently Unemployed: No Education: Associate Degree Difficulty w/ Childcare or Family Care: No Living arrangements: alone Spiritual care concerns: No Agree to blood products: Yes Anes - Eval Final PreProcedure Day of Procedure 06/22/25 10:01 Patient weight: normal Heart: regular rate and rhythm Lungs: clear to auscultation Airway: Mallampati scale class II Neurological: alert and oriented Last oral intake: >/= 8 hours ASA classification: II Emergent: no Anesthetic plan: proceed Anesthesia type and monitoring: general GIVS and standard monitoring Results Review: All pre-operative results and documents have been reviewed as part of the pre-operative evaluation. Informed Consent: The patient's anesthetic plan and its attendant risks and benefits were discussed with the patient/family/POA. Questions were solicited and answers provided to the satisfaction of the patient/family/POA.
[2025-06-22 10:13] LABS: Beta HCG Quantitative < 2.39 mIU/ML
--- NOTE | 2025-06-22 10:28 | P.HP_ITS ---
H&P: HPI History of Present Illness Date/Time: 06/22/25 10:28 Chief Complaint: Screening colonoscopy Narrative: This is the patient's first colonoscopy. There are no GI symptoms and there is no family history of colorectal cancer. Review of Systems Review of Systems: All systems reviewed & are unremarkable except as noted in HPI and below PMFSH Past Medical History Medical History IUD strings lost Varicella Depression Hypertension Family History Family History Father Hypertension Sibling Hypertension Other Cerebrovascular accident Family history of malignant neoplasm of breast in first degree relative Family history of obesity Social History Social History (Reviewed 05/12/25 @ 08:47 by Silvana Mcclure [facility]) Smoking status: Never smoker Second hand tobacco smoke exposure: No Alcohol intake: current Drinks per week: 4 Substance use: never Substance use type: does not use Do You Feel Safe in your Home?: Yes Lack of Transportation: No Lack of Food: Never True Current Housing: I Have Housing Concerned About Future Housing: No Difficulty Paying Gas/Electric Bills: No Difficulty Paying for Meds: No Currently Unemployed: No Education: Associate Degree Difficulty w/ Childcare or Family Care: No Living arrangements: alone Spiritual care concerns: No Agree to blood products: Yes Meds Home Medications and Allergies Home Medications ?Medication ?Instructions ?Recorded ?Confirmed ?Type aspirin 81 mg chewable tablet 81 mg PO HS 11/27/22 History amlodipine 10 mg tablet 10 mg PO DAILY #90 tabs 12/2 01/1706/22/25 Rx escitalopram oxalate 20 mg tablet 20 mg PO DAILY #90 t abs 05/12/25 06/22/25 Rx levonorgestrel 17.5 mcg/24 hr (up 1 device intrauterin e ONCE #1 ea 05/12/25 06/20/25 Rx to 5 yrs) 19.5mg intrauterine device (Kyleena) Allergies Allergy/AdvReac Type Severity Reaction Status Date / Time No Known Allergies Allergy Verified 06/22/25 09:15 Vital Signs Vital Signs - 24 hr 06/22/25 09:16 Temperature 97.6 F Pulse Rate 80 Blood Pressure 115/93 H Pulse Oximetry 100 Oxygen Delivery Room Air Exam Const: General: cooperative and healthy appearing Resp: Effort & Inspection: normal respiratory effort and able to speak in complete sentences Auscultation: clear to auscultation bilaterally Cardio: Rate: regular rate Rhythm: regular rhythm GI: Inspection: normal to inspection GI Palp: No No hepatosplenomegaly present Auscultation: normal bowel sounds Rectal Exam: deferred Skin: General skin exam: normal color Psych: Appearance: grossly normal Mental Status: mental status grossly normal Assessment and Plan Assessment and plan (1) Encounter for screening colonoscopy: Code(s): Z12.11 - Encounter for screening for malignant neoplasm of colon Status: Acute Assessment and Plan: The patient is deemed a good candidate for the procedure. Consent signed. Will proceed.
[2025-06-22 10:47] VITALS: BP 96/65; PULSE 67; RESP 18; O2SAT 100
[2025-06-22 10:57] VITALS: BP 107/73; PULSE 63; RESP 18; O2SAT 100
[2025-06-22 11:07] VITALS: BP 114/82; PULSE 61; RESP 17; O2SAT 100
== END 2025-06-22 11:18 | disposition home or self-care (01) ==
PROVIDERS: Anesthesiology; PCP Family Medicine; Referring Provider Student in an Organized Health Care Education/Training Program; Visit Provider Internal Medicine Gastroenterology
PROC: 0DJD8ZZ Inspection of Lower Intestinal Tract, Via Natural or Artificial Opening Endoscopic (ICD-10-PCS; CPT 45378; principal; 2025-06-22 10:30)
DX: Z12.11 Encounter for screening for malignant neoplasm of colon (principal); I10 Essential (primary) hypertension; F32.A Depression, unspecified; Z79.82 Long term (current) use of aspirin; Z80.3 Family history of malignant neoplasm of breast
CPT/HCPCS: 45378; 36415; 84702; J2003; J2704; J7120

== ENCOUNTER 2025-09-19 09:11 | Outpatient (CLI) | payer BC, SELFPAY ==
--- NOTE | ~2025-09-19 | US_ITS ---
US breast RT limited 09/19/2025 09:56 Indication: Follow-up right breast mass Procedure: Limited right breast ultrasound Comparison: Comparison to multiple prior studies sequentially, with oldest reviewed study dated 03/14/2025. Findings: At 10:00 near the nipple there is an oval hypoechoic mass with adjacent tissue marker from previous benign biopsy. This mass measures 10 x 7 x 5 mm without significant change from prior study allowing for differences of technique. At 10:00, 5 cm from the nipple there is a benign intramammary (measuring 5 mm. This corresponds to mass seen on prior MRI examination dated 03/14/2025 and ultrasound examination dated 04/05/2025. Impression: 1: No evidence for malignancy in the right breast. Benign findings. Routine yearly screening mammogram and regular clinical breast examination are recommended. BI-RADS CATEGORY 2 - BENIGN FINDINGS Reviewed, dictated and finalized at location [facility]. [facility] [employer] Impression: 1: No evidence for malignancy in the right breast. Benign findings. Routine yearly screening mammogram and regular clinical breast examination are recommended. BI-RADS CATEGORY 2 - BENIGN FINDINGS
--- OUTSIDE RECORDS SUMMARY | 2025-09-19 10:04 | XMS_ITS | Clinical Summary ---
Author Organization [facility] Address [address] [place] [id number] Care Team Providers Care Licensed Aircraft Maintenance Engineer Name Role Phone Unavailable Primary Care Provider [...] HPV 2008 Mammogram Screening 2018 COVID-19 Vaccine (2024-2 6 season) 2025 Influenza Adult (#1) 2025 Hepatitis A Vaccines Aged Out No long er eligible based on patient's age to complete this topic Meningococcal B Vaccine Aged Out No l [...]
--- OUTSIDE RECORDS SUMMARY | 2025-09-19 10:04 | XMS_ITS | Clinical Summary ---
Author Organization [facility] [email or web address] Address [address] [place] [address] Care Team Providers Care Legend Maker Name Role Phone Diane Hernandez MD Primary Care Provider [phone] Source Comments [email or web address],non-[facility] Affiliates and Associated Physician Practices is amultiple site organization consisting of ambulatory clinics and hospital sitesin [place], [place]. This disclosure is being madepursuant to the Care Everywhere program and may not contain all information available regarding this patient. Last updated 18.[email or web address] Allergies No known active allergies Medications * [...] Comments Blood Pressure 102/70 12/08/2019 9:48 AM [facility]ER PICKER Pulse 83 12/08/2019 9:48 AM FILLER PICKER Temperature 36.8 C (98.2 F) 12/08/2019 9:48 AM FILLER PICKER Respiratory Rate 17 12/08/2019 9:48 AM FILLER PICKER Oxygen Saturation 99% 12/08/2019 9:48 AM FILLER PICKER Inhaled Oxygen Concentration - - Weight 81.6 kg (180 lb) 12/08/2019 9:48 AM FILLER PICKER Height 157.5 cm (5' 2) 12/08/2019 9:48 AM FILLER PICKER Body Mass Index 32.92 12/08/2019 9:48 AM FILLER PICKER Plan of Treatment Health Maintenance Due Date [...] 19+ 3-dose series) 1997 Cervical Cancer Screening 1999 PAP SMEAR 1999 PAP with HPV 2008 SCREENING FOR DIABETES 04/25/2019 DEPRESSION SCREENING 10/27/2024 COVID-19 VACCINE (1 - 2024-2 6 season) 2025 INFLUENZA VACCINE (#1) 2025 ZOSTER VACCINE (1 [...] Date of Phone Billing Address Personal/Family [id number] SELF PAY NO INSURANCE Member Subscriber Plan / Payer (Ef fective for All Dates) Name:Johanna Smallwood Member ID:Not on file Relation to Subscriber:Not on file Name:JOHANNA SMALLWOOD Subscriber ID:Not on file Address: [address] [place] [address] Payer ID:Not on file Group ID:Not on file Type:Self Pay Address: [place], [place] * Guarantor: JOHANNA SMALLWOOD Account Type Relation to Patient Date of Phone Billing Address Personal/Family [address] [id number] SELF PAY NO INSURANCE Member Subscriber Plan / Payer (Ef fective for All Dates) Name:Johanna Smallwood Member ID:Not on file Relation to Subscriber:Not on file Name:JOHANNA SMALLWOOD Subscriber ID:Not on file Address: [address] [place] [address] Payer ID:Not on file Group ID:Not on file Type:Self Pay Address: [place], [place] * Guarantor: JOHANNA SMALLWOOD Account Type Relation to Patient Date of Phone Billing Address Personal/Family [address] [address] SELF PAY NO INSURANCE Member Subscriber Plan / Payer (Ef fective for All Dates) Name:Johanna Smallwood Member ID:Not on file Relation to Subscriber:Not on file Name:JOHANNA SMALLWOOD Subscriber ID:Not on file Address: [address] [place] [address] Payer ID:Not on file Group ID:Not on file Type:Self Pay Address: [place], [place] Care Teams Legend Maker Relationship Specialty Start Date End Date Diane Hernandez MD [address] [id number] PCP - General Family Medicine 04/25/19
== END 2025-09-19 09:12 | disposition home or self-care (01) ==
PROVIDERS: PCP Family Medicine; Visit Provider Surgery
DX: N63.11 Unspecified lump in the right breast, upper outer quadrant (principal); N63.20 Unspecified lump in the left breast, unspecified quadrant; R92.8 Other abnormal and inconclusive findings on diagnostic imaging of breast
CPT/HCPCS: 76642